=== PATIENT | female | born 1950 | race Caucasian/White ===

== ENCOUNTER 2017-10-15 07:08 | Day surgery (SDC) | payer MEDICARE, MEDICAID ==
--- NOTE | 2017-10-08 03:38 | HP ---
HISTORY AND PHYSICAL: DATE OF OFFICE VISIT: 10/05/17 DATE OF SURGERY: 10/15/17 - [facility] SURGEON: Ria Stock MD * (DICTATED BY IRMA MONTEIRO) PROCEDURE: Arthroscopic right shoulder rotator cuff repair. CHIEF COMPLAINT: Right shoulder pain. HISTORY OF PRESENT ILLNESS: Ms. Ahumada is a 66-year-old female with continued complaints of severe right shoulder pain with weakness and decreased range of motion and MRI confirms a full thickness tear of the supraspinatus tendon. She has elected to proceed with surgery. PAST MEDICAL HISTORY: Hypothyroidism, migraines, GERD, and Meckel's diverticulum. PAST SURGICAL HISTORY: Bowel resection, appendectomy, cholecystectomy, oral surgery, tonsillectomy, adenoidectomy, left shoulder rotator cuff repair, and bilateral knee arthroscopies. CURRENT MEDICATIONS: 1. Levothyroxine, unknown dose. 2. Multivitamin. 3. Vitamin C. 4. Lamotrigine 150 mg daily. 5. Topamax, unknown dose. 6. Trazodone 100 mg daily. 7. Ziprasidone 80 mg daily. 8. Omeprazole 20 mg daily. 8. 24 mg daily. 9. Benadryl everyday. ALLERGIES: ASPIRIN. FAMILY HISTORY: Denies. SOCIAL HISTORY: She is a 66-year-old female, she lives alone. She does not smoke, use drugs, or alcohol. REVIEW OF SYSTEMS: A complete 14-point review of systems was reviewed with the patient, was positive for hypothyroidism. She denies history of DVT, PE, hepatitis C, HIV, or anesthesia problems. PHYSICAL EXAMINATION GENERAL: She is well developed, well nourished, in no acute distress. She is alert and oriented x3, pleasant and appropriate affect. VITAL SIGNS: She stands 5 feet 7 inches tall, weighs 193 pounds. Her blood pressure 130/70, heart rate 82. HEENT: Normocephalic, atraumatic. NECK: Supple. No palpable lymph nodes. PULMONARY: The lungs are clear to auscultation bilaterally. CARDIAC: Regular rate and rhythm. Strong S1, S2. ABDOMEN: Soft, nontender, nondistended. MUSCULOSKELETAL: Right upper extremity, skin is intact. There are no open wounds or abrasions. She has global rotator cuff weakness. 2+ distal radius pulse. She has intact sensation. Range of motion with forward flexion and abduction to about 140 and 120, external rotation to 60 degrees, internal rotation to the lower lumbar spine. NEUROLOGIC: Cranial nerves II through XII are intact. ASSESSMENT AND PLAN: Ms. Ahumada is a 66-year-old female with continued complaints of severe right shoulder pain. She has failed conservative management and MRI confirms a full thickness tear of the supraspinatus tendon. She has elected to proceed with arthroscopic right shoulder rotator cuff repair with Dr. Stock, which is scheduled for 10/15/17. IRMA MONTEIRO [id number]/[facility] #: [id number] VICTOR HUGO
[~2017-10-15 07:08] MED LIST: Buffered Lidocaine 0.9% SYRIN* 5 ML/SYR SYRINGE INTRADERM ONE; Dexamethasone IV* 4 MG/ML 1 ML (4 MG) ONE; Famotidine IV* 10 MG/ML 2 ML (20 mg) IV ONE; Famotidine IV* 10 MG/ML 2 ML (20 mg) ONE; ceFAZolin 2 GM PREMIX (*) 2 GM/50 ML BAG IVPB ONE
[2017-10-15] MEDS ORDERED: Lidocaine 2% PF * 5 ML VIAL ONE (07:12)
[2017-10-15] MEDS ORDERED: Mivacurium Chloride* 20 MG/10 ML VIAL IV ONE (07:12)
[2017-10-15] MEDS ORDERED: Propofol* 10 MG/ML 20 ML BTL IV PUSH ONE (07:12)
[2017-10-15] MEDS ORDERED: Midazolam* 1 MG/ML 2 ML VIAL (2 MG) ONE (07:13)
[2017-10-15] MEDS ORDERED: fentaNYL* 50 MCG/ML 2 ML VIAL (100 MCG VIAL) ONE (07:14)
[2017-10-15] MEDS ORDERED: oxyCODONE/Acetamin 5/325 MG* TAB PO PRN (07:22)
[2017-10-15] MEDS ORDERED: fentaNYL* 50 MCG/ML 2 ML VIAL (100 MCG VIAL) IV PRN (07:22)
[2017-10-15] MEDS ORDERED: HYDROcodone/ACETAMIN 5-325 MG* 1 TAB PO PRN (07:22)
[2017-10-15] MEDS ORDERED: Naloxone* 0.4 MG/ML 1 ML VIAL IV PRN (07:22)
[2017-10-15] MEDS ORDERED: DiMENhydriNATE IV* 50 MG/ML VIAL IV PUSH PRN (07:22)
[2017-10-15] MEDS ORDERED: ROPIVACAINE 5 MG/ML 30 ML BTL (0.5%) ONE (07:31)
[2017-10-15] MEDS: Dexamethasone IV* 4 MG/ML 1 ML (4 MG) IV SLOW PU ONE (07:39)
[2017-10-15] MEDS ORDERED: Bupivacaine 0.25% SDV* 30 ML ONE (08:47)
[2017-10-15] MEDS ORDERED: EPHEDrine (Pressors)* 50 MG/ML VIAL ONE (08:58)
[2017-10-15] MEDS ORDERED: Ondansetron INJ* 2 MG/ML VIAL ONE (09:26)
[2017-10-15 11:19] VITALS: BP 133/58
--- NOTE | 2017-10-17 22:37 | OP ---
DATE OF OPERATION: 10/15/17 - [facility] DATE OF : 54 SURGEON: Ria Stock MD COLLAR TAILOR: IRMA Mtz. An public aid eligibility assistant was needed for the entirety of the case to help with positioning, retraction and was utilized throughout all portions of the case. ANESTHESIOLOGIST: Dr. Pina. ANESTHESIA: General with interscalene block. PRE-OP DIAGNOSIS: Right shoulder rotator cuff tear, possibly bicipital tendonitis. POST-OP DIAGNOSIS: Right shoulder rotator cuff tear of supraspinatus, bicipital tendonitis and tendinopathy, mild glenohumeral arthritis with subacromial impingement. OPERATIVE PROCEDURE: 1. Right shoulder arthroscopy with glenohumeral debridement including biceps tenotomy and debridement of the subscapularis. 2. Subacromial decompression and acromioplasty. 3. Rotator cuff repair, supraspinatus in a double-row fashion. COMPLICATIONS: None. ESTIMATED BLOOD LOSS: Minimal. IMPLANTS USED: One 4.75 Healicoil and 1 MultiFix. INDICATIONS: Sinai Ahumada is a 66-year-old female who was diagnosed with a complete tear of the rotator cuff. She has failed conservative management. She has persistent pain, inability and difficulty with activities of daily living. She has elected to proceed with surgical treatment. DESCRIPTION OF PROCEDURE: The patient was greeted in the preoperative area by the attending surgeon. The correct extremity was marked, consent was confirmed. The patient then underwent interscalene nerve block by the anesthesiologist after which she was brought back to the operating suite where she was placed in supine position on the operating room table. She then underwent general anesthesia and endotracheal intubation after which she was appropriately positioned in the left lateral decubitus position. All bony prominences were padded. She was secured with a pegboard. An axillary roll was placed. Her right shoulder was prepped and draped in usual sterile fashion beginning with chlorhexidine soap, scrub, and alcohol wipe and a final prep with ChloraPrep. After appropriate surgical pause indicating side, site, procedure, and administration of antibiotics, the posterolateral portal was made sharply with an 11 blade. Scope was introduced into the joint, the joint was examined. The glenohumeral joint was examined, had a mild chondrosis with no significant unstable flaps. The anterior, posterior and superior labrum had unstable fraying. The superior labrum was torn with bicipital tendonitis and tendinopathy. The undersurface of the supraspinatus tear had a partial thickness and full thickness tearing. The subscap had evidence of partial thickness tearing. The anterior portal was made in an outside-in fashion. Shaver was used to debride the anterior, posterior, and superior labrum back. The biceps was then tenotomized. The undersurface of the subscap was then debrided back in the usual fashion. The rotator cuff was examined and debrided back. Once the debridement was complete, the scope was repositioned in the subacromial space and the shaver was used to debride the bursitis back after making a lateral portal incision. Again, the shaver was used to debride back the abundant bursa. The undersurface of the acromion was then debrided back using the electrocautery device, which revealed an anterolateral spur. A 4-0 oval archana was then used to do an acromioplasty. All excess debris and fluid was removed from this. Once this was done, the cuff was carefully probed and the partial thickness and full thickness tears were identified. The 11-blade was used to complete the tear. The electrocautery device was used to skeletonize the greater tuberosity. The shaver was used to debride the supraspinatus tendon back. The greater tuberosity was repaired using the rasp and the 4-0 oval archana, which was then used to decorticate it. Through separate stab incision, one 4.75 Healicoil was placed with excellent purchase about the medial aspect of the footprint. This was felt to be in excellent purchase. Sutures were passed through in a horizontal mattress configuration and then tied down using arthroscopic knot tying technique. Sutures were then passed through a MultiFix knotless device, which was used to suture the lateral row. Once this was done, final images were obtained. All fluid and debris removed from the subacromial space. The final images were obtained. The portals were thoroughly irrigated. The portals were closed with 3 -0 nylon. Sterile dressings were applied. A Cryo/Cuff and UltraSling were applied. She was awoken from anesthesia and transferred to the PACU in stable condition. POSTOPERATIVE PLAN: She will be nonweightbearing. She will be in the sling for 6 weeks. She will start physical therapy at 4 weeks. She will be discharged on pain medication. DVT prophylaxis was considered, but deferred due to no previous personal history. I will see the patient back in 2 weeks. [id number]/[facility] #: [id number] MTDRia
== END 2017-10-15 11:20 | disposition home or self-care (01) ==
LOC: OREAST 07:08
PROVIDERS: ATTEND Orthopaedic Surgery
DX: M75.101 Unspecified rotator cuff tear or rupture of right shoulder, not specified as traumatic (principal); M75.21 Bicipital tendinitis, right shoulder; M75.41 Impingement syndrome of right shoulder; M19.011 Primary osteoarthritis, right shoulder; E03.9 Hypothyroidism, unspecified; K21.9 Gastro-esophageal reflux disease without esophagitis; Z88.6 Allergy status to analgesic agent
CPT/HCPCS: C1713; J0690; J1100; J2250; J2405; J2704; J2795; J3010

== ENCOUNTER 2023-07-13 08:29 | Inpatient (IN) ==
[2023-07-13] MEDS ORDERED: NS 0.9% 1000 ml BAG 1,000 ML IV ONE ×2 (08:49→12:02)
[2023-07-13 09:20] LABS: ABS Eosinophils 0.1 10^3/uL (0.0-0.5); ABS Lymphocytes 0.7 10^3/uL (1.0-4.8); ABS Monocytes 0.3 10^3/uL (0.0-0.9); ABS Neutrophils 3.4 10^3/uL (1.5-7.6); Eosinophil % 1.2 %; Hematocrit 36.6 % (35-45); Lymphocyte % 15.4 %; Mean Corpuscular Hemoglobin 33.8 pg (27-33); Mean Corpuscular Hgb Conc 32.9 g/dL (31-36); Mean Corpuscular Volume 102.6 fL (80-97); Mean Platelet Volume 7.3 fL (7.5-11.2); Nucleated Red Blood Cells % 0.1 %/100WBC (0.0-0.8); Platelet Count 223 10^3/uL (150-450); Red Blood Count 3.57 10^6/uL (3.63-4.92); Red Cell Distribution Width 13.6 % (12-17); White Blood Count 4.5 10^3/uL (3.8-11.8)
[2023-07-13 09:36] LABS: ALT 18 U/L (7-52); AST 26 U/L (13-39); Albumin 4.2 g/dL (3.2-5.2); Albumin/Globulin Ratio 1.7 (1-3); Alkaline Phosphatase 76 U/L (35-149); Anion Gap 10 mmol/L (2-16); Blood Urea Nitrogen 22 mg/dL (6-24); C Reactive Protein 1.15 mg/L (<8.01); CO2 Carbon Dioxide 24 mmol/L (22-32); Calcium 9.8 mg/dL (8.6-10.3); Chloride 109 mmol/L (101-111); Globulin 2.5 g/dL (2-4); Glucose 104 mg/dL (70-100); Lipase 20 U/L (11.0-82.0); Phosphorus 3.5 mg/dL (2.5-5.0); Potassium 4.1 mmol/L (3.5-5.0); Sodium 143 mmol/L (135-145); Total Bilirubin 0.4 mg/dL (0.2-1.0); Total Protein 6.7 g/dL (6.4-8.9); eGFR CKD-EPI 54.1 (>60)
[2023-07-13 09:42] LABS: High Sens Troponin Baseline < 3 pg/mL (<15)
[2023-07-13 10:44] LABS: High Sensitivity Troponin 1 Hr < 3 pg/mL (<15)
[2023-07-13 11:59] LABS: Urine Appearance Cloudy; Urine Bilirubin Negative (Negative); Urine Blood Negative (Negative); Urine Color Yellow; Urine Glucose Negative (Negative); Urine Ketones Trace (Negative); Urine Nitrite Negative (Negative); Urine Protein 1+(30 mg/dL) (Negative); Urine Specific Gravity 1.012 (1.002-1.030); Urine Urobilinogen Negative (Negative)
[2023-07-13] MEDS ORDERED: cefTRIAXone 1 gm/50 mL D5W 1 GM/50 ML BAG IV ONE (12:02)
[2023-07-13 12:24] LABS: Urine Bacteria 1+ (Absent); Urine Red Blood Cell 1+(3-5/hpf) (Absent); Urine Squamous Epithelial Cell Present (Absent); Urine White Blood Cell 3+(>20/hpf) (Absent)
[2023-07-13] MEDS: Enoxaparin 40 MG/0.4 ML SYR SUBCUT SCH (22:52)
[2023-07-14 07:08] LABS: Hemoglobin 12.4 g/dL (11.5-14.3); Mean Corpuscular Hemoglobin 34.4 pg (27-33); Mean Corpuscular Hgb Conc 33.6 g/dL (31-36); Mean Corpuscular Volume 102.3 fL (80-97); Mean Platelet Volume 7.5 fL (7.5-11.2); Platelet Count 233 10^3/uL (150-450); Red Blood Count 3.61 10^6/uL (3.63-4.92); Red Cell Distribution Width 13.8 % (12-17); White Blood Count 4.6 10^3/uL (3.8-11.8)
[2023-07-14 07:26] LABS: Calcium 9.1 mg/dL (8.6-10.3); Creatinine, Serum 0.98 mg/dL (0.51-0.95); Magnesium 1.9 mg/dL (1.9-2.7); Potassium 4.3 mmol/L (3.5-5.0); eGFR CKD-EPI 62.1 (>60)
[2023-07-14] MEDS ORDERED: NS 0.9% 1000 ml BAG 1,000 ML IV ONE (13:27)
[2023-07-14] MEDS ORDERED: NS 0.9% 1000 ml BAG 1,000 ML IV SCH (13:30)
[2023-07-14] MEDS: Enoxaparin 40 MG/0.4 ML SYR SUBCUT SCH (17:23)
[2023-07-15] MEDS ORDERED: Metoclopramide 5 MG/ML VIAL (10 mg) IV SLOW PU ONE (08:18)
[2023-07-15] MEDS: Enoxaparin 40 MG/0.4 ML SYR SUBCUT SCH (16:33)
[2023-07-15] MEDS ORDERED: Lactated Ringers 1000 ml BAG 500 ML IV ONE (20:08)
[2023-07-16 08:33] LABS: ABS Eosinophils 0.2 10^3/uL (0.0-0.5); ABS Lymphocytes 1.5 10^3/uL (1.0-4.8); ABS Monocytes 0.4 10^3/uL (0.0-0.9); ABS Neutrophils 2.8 10^3/uL (1.5-7.6); Eosinophil % 3.3 %; Hematocrit 35.1 % (35-45); Hemoglobin 11.6 g/dL (11.5-14.3); Lymphocyte % 31.8 %; Mean Corpuscular Hemoglobin 34.2 pg (27-33); Mean Corpuscular Hgb Conc 33.1 g/dL (31-36); Mean Corpuscular Volume 103.2 fL (80-97); Mean Platelet Volume 7.1 fL (7.5-11.2); Nucleated Red Blood Cells % 0.1 %/100WBC (0.0-0.8); Platelet Count 202 10^3/uL (150-450); Red Blood Count 3.41 10^6/uL (3.63-4.92); Red Cell Distribution Width 13.7 % (12-17); White Blood Count 4.9 10^3/uL (3.8-11.8)
[2023-07-16 08:50] LABS: Calcium 8.6 mg/dL (8.6-10.3); Creatinine, Serum 1.03 mg/dL (0.51-0.95); Potassium 4.4 mmol/L (3.5-5.0); eGFR CKD-EPI 58.5 (>60)
[2023-07-16] MEDS: cefTRIAXone 1 gm/50 mL D5W 1 GM/50 ML BAG IV SCH (09:43)
[2023-07-16] MEDS ORDERED: Lactated Ringers 1000 ml BAG 1,000 ML IV ONE (11:28)
[2023-07-16] MEDS: Lactated Ringers 1000 ml BAG 1,000 ML IV SCH ×2 (14:49→20:46)
[2023-07-16] MEDS: Enoxaparin 40 MG/0.4 ML SYR SUBCUT SCH (17:19)
[2023-07-16] MEDS ORDERED: Senna TAB 8.6 mg TAB PO PRN (20:56)
[2023-07-16] MEDS: Polyethylene Glycol 3350 17 GM PACKET PO PRN (22:30)
[2023-07-17] MEDS: Lactated Ringers 1000 ml BAG 1,000 ML IV SCH (04:26)
[2023-07-17 06:16] LABS: ABS Basophils 0.1 10^3/uL (0.0-0.1); ABS Eosinophils 0.2 10^3/uL (0.0-0.5); ABS Lymphocytes 1.4 10^3/uL (1.0-4.8); ABS Monocytes 0.3 10^3/uL (0.0-0.9); ABS Neutrophils 2.7 10^3/uL (1.5-7.6); ABS Nucleated RBC 0.01 10^3/ul; Eosinophil % 3.9 %; Hematocrit 32.4 % (35-45); Hemoglobin 10.8 g/dL (11.5-14.3); Lymphocyte % 30.3 %; Mean Corpuscular Hemoglobin 34.3 pg (27-33); Mean Corpuscular Hgb Conc 33.3 g/dL (31-36); Mean Corpuscular Volume 102.9 fL (80-97); Mean Platelet Volume 7.2 fL (7.5-11.2); Nucleated Red Blood Cells % 0.2 %/100WBC (0.0-0.8); Platelet Count 188 10^3/uL (150-450); Red Blood Count 3.15 10^6/uL (3.63-4.92); Red Cell Distribution Width 13.7 % (12-17); White Blood Count 4.8 10^3/uL (3.8-11.8)
[2023-07-17 06:44] LABS: Calcium 8.4 mg/dL (8.6-10.3); Creatinine, Serum 0.95 mg/dL (0.51-0.95); Magnesium 1.7 mg/dL (1.9-2.7); Potassium 3.8 mmol/L (3.5-5.0); eGFR CKD-EPI 64.5 (>60)
[2023-07-17] MEDS ORDERED: Magnesium Sulfate 2 gm BAG 2 GM/50 ML BAG IVPB ONE (07:47)
[2023-07-17] MEDS: cefTRIAXone 1 gm/50 mL D5W 1 GM/50 ML BAG IV SCH (10:00)
[2023-07-17] MEDS: CMC:LINACLOTIDE 72 MCG CAP (NF) PO SCH (10:09)
[2023-07-17] MEDS ORDERED: Cosyntropin 0.25 MG VIAL IV ONE (12:30)
[2023-07-17] MEDS: Enoxaparin 40 MG/0.4 ML SYR SUBCUT SCH (17:48)
[2023-07-17] MEDS ORDERED: Lactated Ringers 1000 ml BAG 1,000 ML IV ONE (19:13)
[2023-07-17] MEDS: Polyethylene Glycol 3350 17 GM PACKET PO PRN (22:28)
[2023-07-18 07:51] LABS: ABS Eosinophils 0.2 10^3/uL (0.0-0.5); ABS Lymphocytes 1.9 10^3/uL (1.0-4.8); ABS Monocytes 0.4 10^3/uL (0.0-0.9); ABS Neutrophils 2.8 10^3/uL (1.5-7.6); Eosinophil % 2.9 %; Hematocrit 32.1 % (35-45); Hemoglobin 10.9 g/dL (11.5-14.3); Lymphocyte % 35.7 %; Mean Corpuscular Hemoglobin 34.7 pg (27-33); Mean Corpuscular Hgb Conc 33.9 g/dL (31-36); Mean Corpuscular Volume 102.6 fL (80-97); Mean Platelet Volume 7.9 fL (7.5-11.2); Nucleated Red Blood Cells % 0.1 %/100WBC (0.0-0.8); Platelet Count 193 10^3/uL (150-450); Red Blood Count 3.13 10^6/uL (3.63-4.92); Red Cell Distribution Width 13.7 % (12-17); White Blood Count 5.3 10^3/uL (3.8-11.8)
[2023-07-18 08:15] LABS: Calcium 8.4 mg/dL (8.6-10.3); Creatinine, Serum 0.96 mg/dL (0.51-0.95); Magnesium 1.8 mg/dL (1.9-2.7); Potassium 3.7 mmol/L (3.5-5.0); eGFR CKD-EPI 63.6 (>60)
[2023-07-18 08:27] LABS: C Reactive Protein 1.37 mg/L (<8.01)
[2023-07-18] MEDS ORDERED: Magnesium Sulfate 2 gm BAG 2 GM/50 ML BAG IVPB ONE (08:40)
[2023-07-18] MEDS ORDERED: Iohexol 350 (CONTRAST) 500 ML MDV IV ONE (10:26)
[2023-07-18] MEDS: CMC:LINACLOTIDE 72 MCG CAP (NF) PO SCH (10:50)
[2023-07-19] MEDS: CMC:LINACLOTIDE 72 MCG CAP (NF) PO SCH (10:39)
[2023-07-20 01:38] LABS: Urine Appearance Clear; Urine Bilirubin Negative (Negative); Urine Blood Negative (Negative); Urine Color Amber; Urine Glucose Negative (Negative); Urine Ketones Negative (Negative); Urine Nitrite Positive (Negative); Urine Protein Negative (Negative); Urine Specific Gravity 1.013 (1.002-1.030); Urine Urobilinogen Negative (Negative)
[2023-07-20 02:08] LABS: Urine Bacteria Absent (Absent); Urine Red Blood Cell Absent (Absent); Urine Squamous Epithelial Cell Present (Absent); Urine White Blood Cell 2+(11-20/hpf) (Absent)
[2023-07-20 05:57] VITALS: BP 93/50
[2023-07-20] MEDS: CMC:LINACLOTIDE 72 MCG CAP (NF) PO SCH (08:42)
[2023-07-20 09:43] LABS: Rapid COVID-19 Molecular Undetected (Undetected)
== END 2023-07-20 12:10 | DRG 312 ==
LOC: EDHOLD 08:29 → ED 08:29 → SUATTDRO 14:46 → MED 16:05 → SUATTDRO 07-16 13:42 → MED 07-19 14:16
PROVIDERS: ADMIT Student in an Organized Health Care Education/Training Program; ATTEND Hospitalist